=== PATIENT | female | born 1960 ===

== ENCOUNTER 2021-06-27 08:18 | Outpatient (CLI) | payer OTHER ==
[~2021-06-27 08:18] MED LIST: IBUPROFEN800 MG PO; NABUMETONE500 MG PO; ORPH100T PO; PERCOCET 5/3251 TAB PO
== END 2021-06-27 08:30 | disposition home or self-care (01) ==
LOC: RAD 08:18
PROVIDERS: ATTEND Internal Medicine Gastroenterology
DX: K56.600 Partial intestinal obstruction, unspecified as to cause (principal); K59.00 Constipation, unspecified; C18.9 Malignant neoplasm of colon, unspecified; K57.32 Diverticulitis of large intestine without perforation or abscess without bleeding